=== PATIENT | male | born 1965 | race Caucasian/White ===

== ENCOUNTER → 2017-12-14 | Day surgery (SDC) | payer OTHER ==
[~2017-12-14] VITALS: Ht 175.3 cm; Wt 83.9 kg
[2017-12-14] VITALS (7 sets, daily range): BP systolic 123–128; BP diastolic 76–86
[~2017-12-14] MED LIST: ASPIR 8181 MG ORAL; BSS 15ml BTL ONE; BSS 500ml btl ONE; Bupivacaine 0.75% 30ml vial INJ ONE; Cyclopentolate 1% Opth Sol 2ml ONE; Dexamethasone 4mg/ml vial ONE; DiphenhydrAMINE 50mg/ml Inj IVP PRN; EPINEPHrine 1mg/1ml Amp ONE; Goniosol 2.5% Opth Soln - 15ml ONE; Indocyanine Green 25mg Inj INJ SCH; JULUCA PO; Kenalog-10 5ml Inj ONE; Kenalog-40 1ml Vial ONE; LR 1000ml 1,000 ML IVLG SCH; LR 1000ml ONE; Lidocaine 2% MPF 5ml Vial INJ ONE; Maxitrol Opth Oint 3.5gm ONE; Meperidine 50mg/ml Inj(FOR RIGORS ONLY) IV PRN; Midazolam 2mg/2ml Inj ONE; NS Irrig 1000ml ONE; Norco 5mg/325mg tab ORAL PRN; Phenylephrine 2.5% Op 2ml Soln ONE; Povidone-Iodine 5% opth solution ONE; Pred Forte 1% Opth Susp 1ml ONE; Propofol 200mg/20ml IV ONE; Sterile Water Irrig 1000ml IRRIG ONE; Tetracaine 0.5% Opth 4ml Soln ONE; Triamcinolone 40mg/ml PF Vial ONE; VITAMIN D1000 UNI1 ORAL; fentaNYL 100 mcg/2 mL IV ONE
[2017-12-14] MEDS: Phenylephrine 2.5% Op 2ml Soln RIGHT EYE SCH ×3 (11:08→11:45)
[2017-12-14] MEDS: Cyclopentolate 1% Opth Sol 2ml RIGHT EYE SCH ×3 (11:08→11:45)
--- NOTE | 2017-12-14 13:05 | Pre-Procedure Note/Attestation ---
Pre-Procedure Note/Attestation Complete Prior to Procedure Planned Procedure: right Procedure Narrative: ppv/mp/possible afx od Indications for Procedure Pre-Operative Diagnosis: vision loss, macular edema, [place] retinopathy, erm. Pt told that surgery, even if successful, may not restore his vision and he may be left with permanent vision loss. he understands. reviewed b,a,r. Attestation I attest that I discussed the nature of the procedure; its benefits; risks and complications; and alternatives (and the risks and benefits of such alternatives ), prior to the procedure, with the patient (or the patient's legal human resources representative). I attest that, if there was a reasonable possibility of needing a blood transfusion, the patient (or the patient's legal human resources representative) was given the [place] Department [employer] standardized written summary, pursuant to the Jamin Carlee Blood Safety Act ([place] Health and Safety Code # 1645, as amended). I attest that I re-evaluated the patient just prior to the surgery and that there has been no change in the patient's H&P, except as documented below: Dandy Forman MD Dec 14, 2017 13:05
--- NOTE | 2017-12-14 13:38 | Anethesia Preoperative Eval ---
Anesthesia Pre-op PMH/ROS General Date of Evaluation: Dec 14, 2017 Time of Evaluation: 12:50 Anesthesiologist: Sallie ASA Score: ASA 3 Mallampati Score Class I : Soft palate, uvula, fauces, pillars visible Class II: Soft palate, uvula, fauces visible Class III: Soft palate, base of uvula visible Class IV: Only hard plate visible Mallampati Classification: Class II Surgeon: Dickson Diagnosis: Inflamatory retinopathy Surgical Procedure: R eye PPV membrane peel laser treatment Anesthesia History: none Family History: no anesthesia problems Allergies: Coded Allergies: PROTON PUMP INHIBITORS (Unverified Allergy, Unknown, 12/13/17) Medications: see eMAR Patient NPO?: Yes Past Medical History Cardiovascular: Denies: HTN, CAD, PR, valve dz, arrhythmia, other Pulmonary: Denies: asthma, COPD, LEONARDO, other Gastrointestinal/Genitourinary: Reports: GERD - mild, ESRD - CRF, other - Hep C in remission; Denies: CRI Neurologic/Psychiatric: Reports: depression/anxiety, TIA; Denies: dementia, CVA, other Endocrine: Denies: DM, hypothyroidism, steroids, other HEENT: Denies: cataract (L), cataract (R), glaucoma, [place] (L), [place] (R), other Hematology/Immune: Reports: other - HIV - Aids, syfilis; Denies: anemia, DVT, bleeding disorder Musculoskeletal/Integumentary: Denies: OA, RA, DJD, DDD, edema, other PMH Narrative: as above PSxH Narrative: Hernia repair appendectomy, hemorrhoids Anesthesia Pre-op Phys. Exam Physician Exam Last Vital Signs Date Time Temp Pulse Resp B/P (MAP) Pulse Ox O2 Delivery O2 Flow Rate FiO2 12/14/17 11:30 98.2 63 18 127/82 97 Room Air 98.2 Constitutional: NAD Neurologic: CN 2-12 intact Cardiovascular: RRR, no M/R/G Respiratory: CTA Gastrointestinal: S/NT/ND Airway Exam Mallampati Score: Class II MO: full Neck: flexible ROM: full Teeth: intact Dentures: no upper, no lower Anesthesia Pre-op A/P Labs see chart Risk Assessment & Plan Assessment: ASA 3 HIV-AIds Plan: MAC with retrobulbar block Status Change Before Surgery: No Pre-Antibiotics Drug: none Dangelo Rizo MD Dec 14, 2017 13:38
--- NOTE | 2017-12-14 14:24 | Immediate Post-Op Evaluation ---
Immediate Post-Op Evalulation Immediate Post-Op Evalulation Procedure: R eye PPV Membrane peel laser treatment Date of Evaluation: Dec 14, 2017 Time of Evaluation: 14:23 IV Fluids: 300 Blood Products: none Estimated Blood Loss: min Urinary Output: none Blood Pressure Systolic: 126 Blood Pressure Diastolic: 72 Pulse Rate: 86 Respiratory Rate: 20 O2 Sat by Pulse Oximetry: 99 Temperature (Fahrenheit): 97.7 Pain Score (1-10): 1 Nausea: No Vomiting: No Complications none Patient Status: awake, patent, none Hydration Status: adequate Dangelo Rizo MD Dec 14, 2017 14:24
--- NOTE | 2017-12-14 14:27 | Operative Note - PDOC ---
Operative Note Operative Note Pre-op Diagnosis: 1. Macular pucker 2. Macular edema 3. west [place] retinopathy 4. histiory of treated retinal tears Procedure: ppv/mp/el/afx/sf6 od Post-op Diagnosis: 1. Macular pucker 2. Macular edema 3. [place] retinopathy 4. histiory of treated retinal tears 5. retinal hold oe Post-op Diagnosis: same as pre-op plus Surgeon: brittanie Crate Icer: none Anesthesia: local, MAC Specimen: none Complications: none Condition: stable Drains: none Implant(s) used?: No Indications for Procedure vision loss Dandy Forman MD Dec 14, 2017 14:27
--- NOTE | 2017-12-14 15:15 | 48 Hour Post Anesthesia Eval ---
Post Anesthesia Evaluation Procedure: R eye PPV Membrane peel laser treatment Date of Evaluation: Dec 14, 2017 Time of Evaluation: 15:14 Blood Pressure Systolic: 126 0: 68 Pulse Rate: 72 Respiratory Rate: 20 Temperature (Fahrenheit): 97.6 O2 Sat by Pulse Oximetry: 98 Airway: patent Nausea: No Vomiting: No Pain Intensity: 2 Hydration Status: adequate Cardiopulmonary Status: stable Mental Status/LOC: patient returned to baseline Follow-up Care/Observations: n/a Post-Anesthesia Complications: none Follow-up care needed: ready to discharge Dangelo Rizo MD Dec 14, 2017 15:15
--- NOTE | 2017-12-16 06:45 | Operative Note - Dictated ---
DATE OF OPERATION: 12/14/2017 PREOPERATIVE DIAGNOSES: 1. Cystoid macular edema, right eye. 2. Epiretinal membrane, right eye. 3. [place] retinopathy, right eye. 4. History of treated retinal tears, right eye. 5. Vitreous opacity, right eye. POSTOPERATIVE DIAGNOSES: 1. Cystoid macular edema, right eye. 2. Epiretinal membrane, right eye. 3. [place] retinopathy, right eye. 4. History of treated retinal tears, right eye. 5. Vitreous opacity, right eye. 6. Retinal hole, right eye. PROCEDURES: Pars plana vitrectomy, membrane peel, ILM peel, and air-fluid exchange, endolaser SF6 gas, right eye. PRIMARY SURGEON: Dandy Forman M.D. WHEAT COMBINE DRIVER: None. ANESTHESIA: Monitored anesthesia care with retrobulbar injection. ESTIMATED BLOOD LOSS: None. COMPLICATIONS: None. INDICATIONS: The patient has vision loss due to ERM and CME. After benefits, alternatives, and risks were discussed, an informed consent was signed. The patient was told that due to his rare diagnosis of [place] retinopathy as well as his unusual condition that there is no guarantee that he will regain vision even with successful surgery. He understood and was willing to proceed. DESCRIPTION OF PROCEDURE: The patient was brought to the operating theater and identified. The right eye then received a retrobulbar block using the usual mixture of Marcaine and lidocaine under intravenous sedation with a retrobulbar needle. The right eye was prepped and draped in the usual sterile fashion with a lid speculum placed. Surgical pause was repeated. Under the operating microscope, a 23-gauge valved trocar/cannula was inserted in the inferotemporal quadrant at a distance of 3.5 mm posterior to the limbus using conjunctival displacement in an oblique incision pattern. The infusion line was flushed and then attached and then observed to be in the posterior segment and then turned on. The superotemporal and superonasal cannulas were placed in a similar fashion. The light pipe and vitrectomy cutter were placed into the eye and the [employer] visualization system was brought into view. A core vitrectomy was performed and there were numerous vitreous opacities noted. Peripheral vitrectomy was performed. Chorioretinal scars were seen between the 8 o'clock and 11 o'clock position as there were well treated retinal tears in this area. During peripheral vitrectomy, I noticed a very small retinal hole at 5 o'clock peripherally. My legal administrative assistant provided a scleral depression inferiorly to remove all vitreous traction. The macula was examined and had evidence of macular edema with hard exudates. The retinal vessels in general appeared to sclerotic in nature. There did not appear to be evidence of a vascular occlusion though. I placed diluted ICG on the macula and allowed this to remain for 20 seconds and then removed. Then using a combination of a Toney forceps and ILM forceps both the ILM and ERM were peeled off of the macula without complications. I provided endolaser to the retinal hole and also provided some laser between 5 o'clock and 8 o'clock peripherally. The remainder of the retina was examined with scleral depression and there are no other retinal defects noted. An air fluid exchange was performed. The instruments were removed from the eye. A 24% SF6 gas was diluted and injected through the infusion line and allowed to vent through the supratemporal cannula. All remaining cannulas were removed. The eye was palpated and had a pressure between 10 and 12 and this was desired. Subconjunctival vancomycin and dexamethasone were given infranasal. The lid speculum and drape were removed. Ocular area cleaned and atropine drop and Maxitrol ointment were placed on the ocular surface. A patch and shield were fixed with tape. The patient was taken to the recovery area in good spirits and in no pain. A thorough discussion was had. The patient was given the gas precautions as well as a positioning instruction and postop exam was confirmed for tomorrow with my partner, Dr. Dash. There were no complications during this surgery. Dandy Forman M.D. DR: HERMANN JOB#: [id number] CC:
== END | disposition home or self-care (01) ==
LOC: SUR 10:32
DX: H35.371 Puckering of macula, right eye (principal); H35.81 Retinal edema; H35.00 Unspecified background retinopathy; H33.321 Round hole, right eye; H43.391 Other vitreous opacities, right eye; K21.9 Gastro-esophageal reflux disease without esophagitis; N18.6 End stage renal disease; F32.9 Major depressive disorder, single episode, unspecified; F41.9 Anxiety disorder, unspecified; E78.5 Hyperlipidemia, unspecified; I44.0 Atrioventricular block, first degree; Z86.73 Personal history of transient ischemic attack (TIA), and cerebral infarction without residual deficits; Z85.820 Personal history of malignant melanoma of skin; Z86.19 Personal history of other infectious and parasitic diseases; Z79.82 Long term (current) use of aspirin; Z88.8 Allergy status to other drugs, medicaments and biological substances
CPT/HCPCS: 67042; J0171; J1100; J2250; J2704; J3010; J3370; J3470; J3490; 94003; 94150; J3300